=== PATIENT | male | born 1970 | race Caucasian/White ===

== ENCOUNTER 2019-12-26 16:46 | Emergency (ER) | payer OTHER ==
[~2019-12-26] VITALS: Ht 193 cm; Wt 95.3 kg
--- NOTE | 2019-12-26 16:46 | NUR ---
BIBA 878 FROM HOME C/O HEADACHE, N/V. PT IS AAOX4, NOT IN RESPIRATORY DISTRESS, V/S STABLE, KEPT RESTED AND COMFORTABLE. WILL CONTINUE TO MONITOR.
--- NOTE | 2019-12-26 17:08 | NUR ---
SEEN AND EXAMINED BY JIE ASTUDILLO
--- NOTE | 2019-12-26 17:15 | NUR ---
PT REFUSED BLOOD DRAW. ER PA AWARE.
[2019-12-26] MEDS ORDERED: KETOROLAC TROMETHAMINE INJ 30 MG/ML VIAL ONE (17:19)
[2019-12-26] MEDS ORDERED: SUMATRIPTAN SUCCINATE 6 MG/0.5 ML VIAL SQ ONE ×2 (17:19→17:30)
[2019-12-26] MEDS ORDERED: ONDANSETRON HCL/PF 4 MG/2 ML VIAL ONE (17:19)
[2019-12-26] MEDS ORDERED: IV NS 0.9% 1,000 ML BAG IV ONE (17:30)
[2019-12-26] MEDS ORDERED: ONDANSETRON HCL/PF 4 MG/2 ML VIAL IVP ONE (17:30)
[2019-12-26] MEDS ORDERED: KETOROLAC TROMETHAMINE INJ 30 MG/ML VIAL IV ONE (17:30)
[2019-12-26] MEDS ORDERED: KETOROLAC TROMETHAMINE INJ 60 MG/2 ML VIAL IM ONE (17:30)
--- NOTE | 2019-12-26 18:47 | NUR ---
IV removed. Catheter intact and site benign. Pressure and 4x4 applied to site. No bleeding noted. Patient discharged to home in stable condition. Written and verbal after care instructions given. Patient verbalizes understanding of instruction.
[2019-12-26 18:48] VITALS: BP 121/77
== END 2019-12-26 18:48 | disposition home or self-care (01) ==
LOC: ER 16:54
DX: G43.909 Migraine, unspecified, not intractable, without status migrainosus (principal); R11.10 Vomiting, unspecified; H53.149 Visual discomfort, unspecified
CPT/HCPCS: 96361; 96374; 96375; 99284; J1885; J2405; J3030; J7030